=== PATIENT | female | born 1980 | race Caucasian/White ===

== ENCOUNTER → 2018-01-23 | Outpatient (CLI) | payer OTHER ==
[~2018-01-23] MED LIST: ALPR.25 PO; DIVA500ER; DOCU100 PO; HYDACE5 PO; IBUP800 PO; Keppra1000 MG PO; LEVE500 PO; META800 PO; MULVITA; OXYACE5T PO
== END | disposition home or self-care (01) ==
LOC: LAB 08:43 → LAB SHORT 08:43
PROVIDERS: Family Medicine
DX: Z00.00 Encounter for general adult medical examination without abnormal findings (principal)
CPT/HCPCS: 87624; G0145

== ENCOUNTER 2019-04-26 00:04 | Emergency (ER) | payer OTHER ==
[~2019-04-26] VITALS: Ht 172.7 cm; Wt 74.8 kg
[2019-04-26] MEDS ORDERED: MIRT15 PO (00:34)
== END 2019-04-26 02:32 | disposition left against medical advice (07) ==
LOC: ER 00:04
DX: Z53.21 Procedure and treatment not carried out due to patient leaving prior to being seen by health care provider (principal)

== ENCOUNTER 2021-10-19 19:10 | Observation (INO) | payer OTHER ==
[~2021-10-19] VITALS: Ht 170.2 cm; Wt 81.3 kg
[~2021-10-19 19:10] MED LIST changes: +CHLO5 PO; +MIRT15 PO; +Naltrexone HCl50 MG PO; +SERT100 PO
[2021-10-19 19:56] LABS: BASOPHILS ABSOLUTE AUTO 0.09 K/mm3 (0.00-0.23); BASOPHILS PERCENT AUTO 1 % (0-2); EOSINOPHILS PERCENT AUTO 1 % (0-6); Hematocrit 42.9 % (33.0-51.0); Hemoglobin 14.1 g/dL (11.5-16.0); IMMATURE GRAN ABSOLUTE AUTO 0.04 K/mm3 (0.00-0.10); IMMATURE GRAN PERCENT AUTO 0 % (0-1); LYMPHOCYTES ABSOLUTE AUTO 3.63 K/mm3 (0.84-5.20); LYMPHOCYTES PERCENT AUTO 25 % (21-46); MONOCYTES ABSOLUTE AUTO 1.17 K/mm3 (0.16-1.47); MONOCYTES PERCENT AUTO 8 % (4-13); Mean Corpuscular HGB 31.3 pg (26.0-34.0); Mean Corpuscular HGB Conc 32.9 g/dL (31.5-36.5); Mean Corpuscular Volume 95 fL (80-100); Mean Platelet Volume 8.4 fL (9.1-12.4); NEUTROPHILS ABSOLUTE AUTO 9.59 K/mm3 (1.96-9.15); NEUTROPHILS PERCENT AUTO 66 % (41-73); Platelet Count 347 K/mm3 (150-400); RDW Coefficient Variation 11.9 % (11.7-14.2); RDW Standard Deviation 41.1 fL (35.1-46.3); Red Blood Cell Count 4.51 M/mm3 (3.80-5.20); White Blood Cell Count 14.62 K/mm3 (4.00-11.30)
[2021-10-19 20:14] LABS: Alanine Aminotransfer (ALT/SGP 27 U/L (12-78); Albumin, Blood 4.1 g/dL (3.4-5.0); Albumin/Globulin Ratio 1.4 (0.8-1.8); Alk Phos 85 U/L (50-136); Anion Gap 12 mmol/L (6-16); Aspartate Aminotrans (AST/SGOT 14 U/L (12-37); Bilirubin, Total 0.4 mg/dL (0.1-1.0); Blood Urea Nitrogen 16 mg/dL (8-24); Bun/Creatinine Ratio 22.7 (12.0-20.0); CO2, Blood 18 mmol/L (21-32); Calcium, Blood 8.7 mg/dL (8.5-10.1); Chloride, Blood 112 mmol/L (98-108); Creatinine, Blood 0.71 mg/dL (0.40-1.00); Glomerular Filtration Rate >60 (60-); Glucose, Blood 128 mg/dL (70-99); Magnesium, Blood 2.3 mg/dL (1.6-2.4); Potassium, Blood 3.3 mmol/L (3.5-5.5); Sodium, Blood 142 mmol/L (136-145); Total Protein, Blood 7.1 g/dL (6.4-8.2)
[2021-10-19 21:25] LABS: Source, Urine Clean Catch
[2021-10-19 21:33] LABS: Appearance, Urine Clear (Clear); Bilirubin, Urine Neg (Neg); Blood, Urine 5+ (Neg); Color, Urine Yellow (P-Yellow); Glucose Qualitative, Urine Neg (Neg); Ketones, Urine 1+ (Neg); Leukocyte Esterase, Urine Neg (Neg); Nitrite, Urine Neg (Neg); Protein, Urine 1+ (Neg); Urobilinogen, Urine NORM (Normal)
[2021-10-19 21:49] LABS: U Amphetamine Screen Not Detected; U Barbituate Screen Not Detected; U Benzodiazapine Screen Not Detected; U Buprenorphine Screen Not Detected; U Cannabinoids Screen Not Detected; U Cocaine Screen Not Detected; U Methadone Screen Not Detected; U Methamphetamine Screen Not Detected; U Opiates Screen Not Detected; U Oxycodone Screen Not Detected; U Phencyclidine Screen Not Detected; U Propoxyphene Screen Not Detected
[2021-10-19 22:02] LABS: Amorphous Light (0-Heavy); Bacteria Few /hpf; Red Blood Cells, Urine Rare /hpf (0-2); Squamous Epithelial Cells Few /hpf (Few); White Blood Cells, Urine Rare /hpf (0-5)
[2021-10-20 04:36] LABS: BASOPHILS ABSOLUTE AUTO 0.06 K/mm3 (0.00-0.23); BASOPHILS PERCENT AUTO 1 % (0-2); EOSINOPHILS ABSOLUTE AUTO 0.07 K/mm3 (0.00-0.68); EOSINOPHILS PERCENT AUTO 1 % (0-6); Hematocrit 35.2 % (33.0-51.0); Hemoglobin 11.7 g/dL (11.5-16.0); IMMATURE GRAN ABSOLUTE AUTO 0.02 K/mm3 (0.00-0.10); IMMATURE GRAN PERCENT AUTO 0 % (0-1); LYMPHOCYTES ABSOLUTE AUTO 1.82 K/mm3 (0.84-5.20); LYMPHOCYTES PERCENT AUTO 20 % (21-46); MONOCYTES PERCENT AUTO 8 % (4-13); Mean Corpuscular HGB 31.7 pg (26.0-34.0); Mean Corpuscular HGB Conc 33.2 g/dL (31.5-36.5); Mean Corpuscular Volume 95 fL (80-100); Mean Platelet Volume 8.7 fL (9.1-12.4); NEUTROPHILS ABSOLUTE AUTO 6.47 K/mm3 (1.96-9.15); NEUTROPHILS PERCENT AUTO 71 % (41-73); Platelet Count 261 K/mm3 (150-400); RDW Coefficient Variation 11.9 % (11.7-14.2); RDW Standard Deviation 41.6 fL (35.1-46.3); Red Blood Cell Count 3.69 M/mm3 (3.80-5.20); White Blood Cell Count 9.14 K/mm3 (4.00-11.30)
[2021-10-20 05:12] LABS: Alanine Aminotransfer (ALT/SGP 19 U/L (12-78); Albumin, Blood 3.1 g/dL (3.4-5.0); Albumin/Globulin Ratio 1.4 (0.8-1.8); Alk Phos 53 U/L (50-136); Anion Gap 4 mmol/L (6-16); Aspartate Aminotrans (AST/SGOT 12 U/L (12-37); Bilirubin, Total 0.6 mg/dL (0.1-1.0); Blood Urea Nitrogen 10 mg/dL (8-24); Bun/Creatinine Ratio 18.8 (12.0-20.0); CO2, Blood 25 mmol/L (21-32); Calcium, Blood 7.7 mg/dL (8.5-10.1); Chloride, Blood 115 mmol/L (98-108); Creatinine, Blood 0.53 mg/dL (0.40-1.00); Globulin, Blood 2.2 g/dL (2.2-4.0); Glomerular Filtration Rate >60 (60-); Glucose, Blood 109 mg/dL (70-99); Potassium, Blood 3.6 mmol/L (3.5-5.5); Sodium, Blood 144 mmol/L (136-145); Total Protein, Blood 5.3 g/dL (6.4-8.2)
--- NOTE | 2021-10-20 06:35 | NUR ---
SHIFT SUMMARY: PT WAS ADMITTED OVERNIGHT FROM THE ED WITH SEIZURES. 2 WITNESSED SEIZURES OCCURRED IN THE ED, BUT NONE SINCE ARRIVING TO PCU. PT AWAKENS EASILY, BUT HAS NOT BEEN TALKING-JUST NODS. SHE HAS BEEN VERY SLEEPY AND CONFUSED IN HER POST-ICTAL STATE. SINCE ARRIVING TO PCU SHE HAS GOTTEN 1L BOLUS LR, POTASSIUM REPLACED AND MAINTENANCE NS @ 100 MLS/HR. NO CHANGE IN NEURO STATUS SINCE ARRIVAL. PT WAS UP TO BEDSIDE COMMODE WITH 2 ASSIST, SHE IS VERY UNSTEADY AND APPEARED TO HAVE VERTIGO WITH TORSO/HEAD LEANING SIDEWAYS. VSS. WITH EXCEPTION OF NEURO, ASSESSMENT WAS UNREMARKABLE.
[2021-10-20] MEDS ORDERED: PHENY100ER PO (16:57)
--- NOTE | 2021-10-20 17:27 | NUR ---
SHIFT SUMMARY ASSUMED CARE AT 0700. WAKES TO VERBAL STIMULI, MOM AT BEDSIDE. SLEEPY BUT ORIENTED X3. 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 MONITORED THROUGHOUT DAY. WALKS TO RESTROOM WITH SBA. DISHARGED HOME WITH MOM, RX FAXED TO [facility]. VERBAL AND WRITTEN INSTRUCTIONS GIVEN TO PT AND MOTHER WITH CLEAR UNDERSTANDING.
== END 2021-10-20 17:24 | disposition home or self-care (01) ==
LOC: ER 19:10 → PCU 19:11
PROVIDERS: Physician Assistant; ADMIT Internal Medicine
DX: G40.409 Other generalized epilepsy and epileptic syndromes, not intractable, without status epilepticus (principal); R74.02 Elevation of levels of lactic acid dehydrogenase [LDH]; F17.210 Nicotine dependence, cigarettes, uncomplicated; F10.21 Alcohol dependence, in remission; D72.829 Elevated white blood cell count, unspecified; E87.6 Hypokalemia
CPT/HCPCS: 36415; 70450; 80053; 81001; 83605; 83735; 84703; 85025; 93005; 93010; 96365; 96368; 96375; 96376; 99285-25; G0480; J1953; J2060; J3480; J7030; J7120; Q2009